=== PATIENT | male | born 1950 | race Caucasian/White ===

== ENCOUNTER → 2024-05-23 | Outpatient (CLI) | payer MEDICARE, OTHER, SELFPAY ==
[2024-05-23 09:51] LABS: Collection Type, Urine Clean Catch; Squamous Epithelial Cell,Urine 0 /hpf (0-5)
[2024-05-23 10:17] LABS: Basophils % (Auto) 0 % (0-2.5); Eosinophils # (Auto) 0.1 Thou/mm3 (0.0-0.5); Eosinophils % (Auto) 1 % (0-10); Hematocrit 41.6 % (41.0-53.0); Hemoglobin 14.6 g/dL (13.5-16.0); Immature Granulocytes % (Auto) 0 % (0-0); Immature Granulocytes Auto 0.02 Thou/mm3 (0.00-0.00); Lymphocytes % (Auto) 64 % (10-50); Mean Corpuscular HGB Conc 35.1 g/dl (31.0-37.0); Mean Corpuscular Hemoglobin 32.3 pg (25.0-35.0); Mean Corpuscular Volume 92 fL (80-100); Monocytes # (Auto) 1.1 Thou/mm3 (0.0-0.8); Monocytes % (Auto) 11 % (0-12); Neutrophils # (Auto) 2.2 Thou/mm3 (1.8-7.7); Neutrophils % (Auto) 23 % (37-80); Nucleated Red Blood Cell % 0 /100 WBC (0); Platelet Count 96 Thou/mm3 (140-440); RDW Standard Deviation 42.8 fL (35.1-43.9); Red Blood Count 4.52 Miln/mm3 (4.50-5.90); White Blood Count 9.4 Thou/mm3 (3.8-10.6)
[2024-05-23 10:28] LABS: Glucose Estimated Average 103 mg/dL (80-131); Hemoglobin A1C 5.2 % Hgb (4.8-6.0)
[2024-05-23 10:31] LABS: Bilirubin,Urine Negative (Negative); Blood,Urine Negative (Negative); Clarity,Urine Clear (Clear/Hazy); Color,Urine Yellow (Lt Yel-Yel); Culture Indicated,Urine Not Indicated; Glucose, Urine Negative (Negative); Ketones,Urine Negative (Negative); Leukocyte Esterase,Urine Negative (Negative); Nitrite,Urine Negative (Negative); PH,Urine 5.5 (5.0-7.0); Protein,Urine Trace (Neg - Trace); RBC,Urine 1 /hpf (0-3); Specific Gravity,Urine 1.022 (1.001-1.035); Urobilinogen,Urine Negative mg/dL (0.0-1.0); WBC,Urine < 1 /hpf (0-5)
[2024-05-23 10:49] LABS: Alanine Aminotransferase 22 U/L (10-49); Albumin, Serum 4.4 gm/dL (3.4-4.8); Albumin/Globulin Ratio 1.9 (1.2-2.2); Anion Gap 5 (7-16); Aspartate Amino Transferase 27 U/L (0-34); BUN/Creatinine Ratio 17 Ratio (12-20); Bilirubin,Total 2.9 mg/dL (0.3-1.2); Blood Urea Nitrogen 20 mg/dL (9-23); Calcium 9.7 mg/dL (8.3-10.6); Calcium (Corrected) 9.7 mg/dL (8.5-10.1); Carbon Dioxide 28.6 mMol/L (20.0-31.0); Cardiac Risk Estimate 3.3 RATIO (4.0-6.7); Chloride 107 mMol/L (98-107); Cholesterol 103 mg/dL (132-200); Creatinine (Component) 1.2 mg/dL (0.6-1.3); Globulin 2.3 gm/dL (2.3-3.5); Glucose 101 mg/dL (74-106); HDL Cholesterol 31 mg/dL (40-60); LDL Cholesterol,Calculated 49 mg/dL (0-130); Osmolality,Calculated 283 (275-295); Potassium 4.8 mMol/L (3.4-5.1); Sodium 141 mMol/L (136-145); Thyroid Stimulating Hormone 3.44 uIU/mL (0.55-4.78); Total Protein 6.7 gm/dL (5.7-8.2); Triglycerides 113 mg/dL (30-150); eGFR > 60 See Note
[2024-05-23 13:44] LABS: Alkaline Phosphatase 92 U/L (46-116)
== END | disposition home or self-care (01) ==
PROVIDERS: PCP Family Medicine; Referring Provider Nurse Practitioner Family; Visit Provider Nurse Practitioner Family
DX: Z00.00 Encounter for general adult medical examination without abnormal findings (principal)
CPT/HCPCS: 36415; 80053; 80061; 81001; 83036; 84153; 84443; 85025

== ENCOUNTER → 2024-06-08 | Outpatient (CLI) | payer MEDICARE, OTHER, SELFPAY ==
[2024-06-08 15:57] LABS: Basophils % (Auto) 0 % (0-2.5); Eosinophils # (Auto) 0.1 Thou/mm3 (0.0-0.5); Eosinophils % (Auto) 1 % (0-10); Hematocrit 41.9 % (41.0-53.0); Hemoglobin 14.5 g/dL (13.5-16.0); Immature Granulocytes % (Auto) 0 % (0-0); Immature Granulocytes Auto 0.04 Thou/mm3 (0.00-0.00); Lymphocytes # (Auto) 6.8 Thou/mm3 (1.0-4.8); Lymphocytes % (Auto) 68 % (10-50); Mean Corpuscular HGB Conc 34.6 g/dl (31.0-37.0); Mean Corpuscular Hemoglobin 32.6 pg (25.0-35.0); Mean Corpuscular Volume 94 fL (80-100); Monocytes # (Auto) 0.7 Thou/mm3 (0.0-0.8); Monocytes % (Auto) 7 % (0-12); Neutrophils # (Auto) 2.4 Thou/mm3 (1.8-7.7); Neutrophils % (Auto) 24 % (37-80); Nucleated Red Blood Cell % 0 /100 WBC (0); Platelet Count 101 Thou/mm3 (140-440); RDW Standard Deviation 44.1 fL (35.1-43.9); Red Blood Count 4.45 Miln/mm3 (4.50-5.90)
[2024-06-08 16:05] LABS: Alanine Aminotransferase 31 U/L (10-49); Albumin, Serum 4.5 gm/dL (3.4-4.8); Albumin/Globulin Ratio 1.8 (1.2-2.2); Alkaline Phosphatase 113 U/L (46-116); Anion Gap 6 (7-16); Aspartate Amino Transferase 35 U/L (0-34); BUN/Creatinine Ratio 18 Ratio (12-20); Bilirubin,Total 2.2 mg/dL (0.3-1.2); Blood Urea Nitrogen 20 mg/dL (9-23); Calcium 10.2 mg/dL (8.3-10.6); Calcium (Corrected) 10.2 mg/dL (8.5-10.1); Carbon Dioxide 28.1 mMol/L (20.0-31.0); Chloride 109 mMol/L (98-107); Creatinine (Component) 1.1 mg/dL (0.6-1.3); Globulin 2.5 gm/dL (2.3-3.5); Glucose 88 mg/dL (74-106); Osmolality,Calculated 286 (275-295); Potassium 5.3 mMol/L (3.4-5.1); Sodium 143 mMol/L (136-145); eGFR > 60 See Note
[2024-06-11 23:36] LABS: HCV RNA, PCR <15 NOT DETECTED IU/mL
[2024-06-12 07:19] LABS: HCV RNA, PCR Log IU <1.18 NOT DETECTED Log IU/mL
== END | disposition home or self-care (01) ==
LOC: COPL 14:29
PROVIDERS: PCP Family Medicine; Referring Provider Specialist; Visit Provider Specialist
DX: R16.0 Hepatomegaly, not elsewhere classified (principal); R14.0 Abdominal distension (gaseous); R10.31 Right lower quadrant pain; R10.32 Left lower quadrant pain
CPT/HCPCS: 36415; 80053; 82105; 85025; 87522

== ENCOUNTER → 2024-06-13 | Outpatient (CLI) | payer MEDICARE, OTHER, SELFPAY ==
--- NOTE | 2024-06-13 13:00 | XR_ITS ---
Examination: Abdomen sonogram, Limited Date and time of exam: June 13, 2024 1309 hours INDICATIONS: Abdominal distention beginning this week Technique: Real-time alejandro scale transabdominal sonographic images of the upper abdomen obtained. Findings: Negative for gallstones Gallbladder wall is abnormally thickened 0.68 cm Common bile duct 0.3 cm Pancreatic head 3.3 cm Liver 16.9 cm lobular contour fatty infiltration Normal hepatopedal portal venous flow Patent IVC IMPRESSION: Consider HIDA scan or MRCP follow-up to exclude cholecystitis
== END | disposition home or self-care (01) ==
PROVIDERS: PCP Specialist; Referring Provider Specialist; Visit Provider Specialist
DX: R14.0 Abdominal distension (gaseous) (principal); R10.32 Left lower quadrant pain; R10.31 Right lower quadrant pain
CPT/HCPCS: 76705

== ENCOUNTER 2024-12-01 16:49 | Emergency (ER) | payer MEDICARE, OTHER, SELFPAY ==
--- NOTE | 2024-12-01 16:57 | EDNOTE_ITS ---
ED Wound/Laceration-RME/HPI General Chief Complaint: Wound/Laceration Stated Complaint: CUT LEFT INEX FINGER ON TABLE SAW Time Seen by Provider: 12/01/24 16:57 Source: patient Arrival date/time: 12/01/24 16:49 74-year-old male with a history of cirrhosis, hepatitis C presents to the [facility] ency room with a chief complaint of a laceration to his left index finger Mode of arrival: ambulatory Limitations: no limitations Related Data Home Medications ?Medication ?Instructions ?Recorded ?Confirmed apixaban 5 mg tablet (Eliquis) 5 mg PO BID 01/14/24 hydroxyzine HCl 10 mg tablet 10 mg PO QID 01/14/24 metoprolol succinate 50 mg 50 mg PO TID 01/14/2401/13 tablet,extended release 24 hr Previous Rx's ?Medication ?Instructions ?Recorded atorvastatin 20 mg tablet 40 mg (2 x 20 mg) PO HS #2 t abs 08/10/17 nitroglycerin 0.4 mg sublingual 0.4 mg SL Q5M PRN Ches t Pain #3 08/10/17 tablet (Nitrostat) tabs sulfamethoxazole 800 1 tab PO BID 5 days #10 tabs 12/01/24 mg-trimethoprim 160 mg tablet (Bactrim DS) Allergies Allergy/AdvReac Type Severity Reaction Status Date / Time adhesive tape Allergy Mild skin Verified 12/01/24 16:51 irritation cefuroxime Allergy Mild DIARRHEA Verified 12/01/24 16:51 iodine Allergy Mild itching Verified 12/01/24 16:51 Review of Systems Review of Systems Systems Reviewed: All systems reviewed, normal except as documented Constitutional Constitutional: Reports system reviewed and no additional complaints, except as documented, Denies fatigue, Denies fever(s), Denies headache(s) and Denies weakness Eyes Eyes: Reports system reviewed and no additional complaints, except as documented, Denies blurry vision and Denies change in vision ENT Ears, Nose, Mouth, and Throat: Reports system reviewed and no additional complaints, except as documented, Denies otalgia, Denies headache(s), Denies nasal congestion, Denies throat swelling and Denies vertigo Cardiovascular Cardiovascular: Reports system reviewed and no additional complaints, except as documented, Denies chest pain, Denies dyspnea and Denies dyspnea on exertion Respiratory Respiratory: Reports system reviewed and no additional complaints, except as documented, Denies chest congestion, Denies cough, Denies dyspnea, Denies dyspnea on exertion and Denies wheezing Gastrointestinal Gastrointestinal: Reports system reviewed and no additional complaints, except as documented, Denies abdominal pain, Denies cramping, Denies nausea and Denies vomiting Genitourinary Genitourinary: Reports system reviewed and no additional complaints, except as documented, Denies dysuria and Denies hematuria Musculoskeletal Musculoskeletal: Reports system reviewed and no additional complaints, except as documented and Denies back pain Integumentary/Breasts Skin/Breast: Reports system reviewed and no additional complaints, except as documented and Reports wounds Neurologic Neurologic: Reports system reviewed and no additional complaints, except as documented, Denies confusion, Denies headache(s), Denies lack of coordination, Denies vertigo and Denies weakness Psychiatric Psychiatric: Reports system reviewed and no additional complaints, except as documented, Denies anxiety, Denies confusion, Denies depression, Denies paranoia, Denies suicidal ideation and Denies tactile hallucinations Endocrine Endocrine: Reports system reviewed and no additional complaints, except as documented and Denies fatigue Hematologic/Lymphatic Hematologic/Lymphatic: Reports system reviewed and no additional complaints, except as documented and Denies lymphadenopathy Allergic/Immunologic Allergic/Immunologic: Reports system reviewed and no additional complaints, except as documented, Denies throat swelling, Denies urticaria and Denies wheezing Past Medical History Past Medical History NEUROLOGIC: Positive Peripheral Neuropathy (per/pt due to herniated disks); Negative Seizures CARDIAC: Positive Cardiac Disorders, Cardiac Arrhythmia, Atrial Fibrillation, Hypercholesterolemia and Hypertension; Negative Congestive Heart Failure RESPIRATORY: Negative Chronic Obstructive Pulmonary Disease (COPD) GASTROINTESTINAL: Positive Cirrhosis and Hiatal Hernia (umbilical hernia) GENITOURINARY: Positive Benign Prostatic Hyperplasia (Pending biopsy of prostate per/pt.); Negative Renal Disease REPRODUCTIVE: Positive Gonorrhea ENDOCRINE: Negative Diabetes Mellitus Type 1 or Diabetes Mellitus Type 2 PSYCHO/SOCIAL: Positive Anxiety OTHER HISTORY: Positive 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; side effect of interferon therapy.), Blood Transfusions, Anesthesia Reactions (to ether-hard to wake up) and Cancer (melanoma); Negative Blood Transfusion Reaction Family History FAMILY HISTORY: Positive Family Cardiac Disorders (Father: [place] (age 40's) & heart Ds; Mother Heart Ds in 80's) Surgical History SURGICAL: Positive Arthroscopy (Bilateral knees) Social History SMOKING STATUS: Never smoker SECOND HAND EXPOSURE: No ED Exam General Limitations: Present no limitations General appearance: Present alert and in no apparent distress Head Head exam: Present atraumatic Eye Eye exam: Present normal appearance, PERRL and EOMI ENT ENT exam: Present normal exam, normal oropharynx and mucous membranes moist Neck Neck exam: Present normal inspection, full ROM and trachea midline Chest Chest inspection: Present normal inspection and symmetric chest wall rise Respiratory Respiratory exam: Present normal lung sounds bilaterally Cardiovascular Cardiovascular exam: Present regular rate, normal rhythm and normal heart sounds Abdominal Exam Abdominal exam: Present soft and normal bowel sounds Extremities Exam Extremities exam: Present normal inspection and full ROM Back Exam Back exam: Present normal inspection and full ROM Neurological Exam Neurological exam: Present alert, oriented X3 and CN II-XII intact Psychiatric Psychiatric exam: Present normal affect and normal mood Skin Skin exam: Present warm, dry, intact and normal color Course Quality Measures none Orders Category Date Time Status Set Up Suture Tray STAT Care 12/01/24 16:57 Completed Wound Care NOW Care 12/01/24 16:57 Completed Lidocaine 1% 20 ml [Xylocaine 1% 20 ML] Med 12/01/24 16:57 Discontinued 20 ml INFL X1 ONE TET,DIP/PERT AC (Adult)-Tdap [Boostrix Adult (Tdap) Med 12/01/24 16:57 Discontinued Vacc] 0.5 ml IMI .ONCE ONE Vital Signs Vital signs: Vital Signs Temperature 98.0 F 12/01/24 17:00 Pulse Rate 93 12/01/24 17:00 Respiratory Rate 20 12/01/24 17:00 Blood Pressure 144/91 H 12/01/24 17:00 Pulse Oximetry (%) 97 12/01/24 17:00 Oxygen Delivery Method Room Air 12/01/24 17:00 O2 saturation 97% within normal limits PROCEDURES: Laceration Laceration 1: Site: hand Side (If applicable): left Size (cm): 2 Description: linear, flap and irregular Depth: simple, single layer Local Anesthetic: lidocaine 1% Amount of anesthesia used (mL): 5 Pre-repair: irrigated extensively Skin layer closed with: nylon Suture size (cm): 4-0 Number of sutures: 4 Technique: simple, interrupted Wound / Laceration MDM Narrative MDM Narrative:: 74-year-old male with a history of cirrhosis, hepatitis C presents to the emergency room with a chief complaint of a laceration to his left index finger The laceration occured 1 hour ago The mechanism of injury was using a saw Sensation is intact. There is full ROM. There is no exposed tendons. No foreign bodies. Lidocaine 1% was used for anesthesia. The wound was irrigated extensively with normal saline. 4 sutures were placed. A dressing was placed. There were no complications. Patient was educated to keep the area clean and dry for 24 hours, then clean daily with soap and water. Patient was educated to return for any signs of infection including swelling pain redness pus or fever and to make an appo intment with primary care provider in 48 hours. Patient was educated to follow up with primary or return to emergency room for suture removal in the next 7-10 days. Patient data External records reviewed:: [facility] previous records Clinical information provided by:: patient Social determinants that could affect healthcare access:: none Patient has the following chronic illnesses:: No chronic illness How is presenting disease/condition affected by chronic disease/condition?: no chronic disease Evaluation data The following diagnostics were reviewed and interpreted by me:: lab results and radiology exam(s) Lab and/or radiology exams considered but not ordered:: Labs and radiology exams considered and ordered Interpretation Summary: N/A Medications / Prescriptions Medications or Prescriptions considered but not ordered:: Medication given Medication administrations:: Medication Administration History Discontinued Medications Diphtheria/Tetanus/Acell Pertussis (Diphth,Pertuss(Acell),Tet Vac 0.5 Ml Syr- Adult) 0.5 ml IMi .ONCE ONE Stop: 12/01/24 16:58 Last Admin: 12/01/24 17:41 Dose: Not Given Documented By: Non-Admin Reason: Patient Refused Lidocaine HCl (Lidocaine Hcl 1% 20 Ml Vial) 20 ml INFL X1 ONE Stop: 12/01/24 16:58 Last Admin: 12/01/24 17:41 Dose: 20 ml Documented By: Medication given Consultations Consultation(s) initiated? (list below): No Diagnosis Wound Differential Diagnosis: laceration, abscess, abrasion and avulsion of skin Most likely diagnosis given after review of the tests above:: Laceration Admission Indicated Admission indicated?: not indicated Admission Request Was there a request for admission?: No Disposition Plan Disposition Plan: Discharge Discharge Attestation Discharge Attestation: The patient and all family members were given an opportunity to ask questions and understood the discharge instructions. Discharge instructions specifically effects, indications for sooner follow up or return to the emergency department, and the expected course of current diagnosis. Patient condition: Stable Discharge Plan Plan Patient Disposition: HOME (Self Care) Discharge Disposition comment: Stable Prescriptions/Referrals Prescriptions/Med Rec: New sulfamethoxazole-trimethoprim [Bactrim DS] 800-160 mg tablet 1 tab PO BID 5 Days Qty: 10 0RF No Action atorvastatin 20 mg Tablet 40 mg PO HS Qty: 2 0RF nitroglycerin [Nitrostat] 0.4 mg Tablet, Sublingual 0.4 mg SL Q5M PRN (Reason: Chest Pain) Qty: 3 0RF metoprolol succinate 50 mg Tablet Extended Release 24 Hr 50 mg PO TID hydroxyzine HCl 10 mg Tablet 10 mg PO QID Eliquis 5 mg Tablet 5 mg PO BID Problem List Clinical Impression: Laceration Patient/Caregiver Discharge Instructions Additional Instructions: Please follow-up with your primary care provider in the next 24 to 48 hours Antibiotics are sent to your pharmacy please pick them up and take them as indicated Please keep the area clean and dry for the next 24 hours after you clean it with soap and water You can return to the emergency room or follow-up with your regular doctor in 7 to 10 days for suture removal For any evidence of worsening signs or symptoms return to the emergency room immediately Print Language: Pashto Stand Alone Forms: Dariela Award Info., Patient Portal Info Letter PA/EVELIO Supervising Physician RADHA/EVELIO Supervising Physician: Dr. Tabares
[2024-12-01 17:00] VITALS: BP 144/91; PULSE 93; RESP 20; TEMP 36.7; O2SAT 97
[2024-12-01] MEDS: LIDOCAINE HCL 1% 20 ML VIAL INFL (17:41)
== END 2024-12-01 18:45 | disposition home or self-care (01) ==
PROVIDERS: Emergency Provider Family Medicine
DX: S61.211A Laceration without foreign body of left index finger without damage to nail, initial encounter (principal); Z28.21 Immunization not carried out because of patient refusal; W31.2XXA Contact with powered woodworking and forming machines, initial encounter; Z88.1 Allergy status to other antibiotic agents; Z91.041 Radiographic dye allergy status; Z91.048 Other nonmedicinal substance allergy status
CPT/HCPCS: 12001; 99284; J3490

== ENCOUNTER → 2025-01-23 | Outpatient (CLI) | payer MEDICARE, OTHER, SELFPAY ==
[2025-01-23 13:36] LABS: Anion Gap 7 (7-16); BUN/Creatinine Ratio 11 Ratio (12-20); Blood Urea Nitrogen 13 mg/dL (9-23); Calcium 9.1 mg/dL (8.3-10.6); Carbon Dioxide 27.7 mMol/L (20.0-31.0); Chloride 108 mMol/L (98-107); Creatinine (Component) 1.2 mg/dL (0.6-1.3); Glucose 113 mg/dL (74-106); Magnesium 1.8 mg/dL (1.6-2.6); Osmolality,Calculated 286 (275-295); Potassium 4.8 mMol/L (3.4-5.1); Sodium 143 mMol/L (136-145); eGFR > 60 See Note
== END | disposition home or self-care (01) ==
LOC: COPL 12:37
PROVIDERS: PCP Family Medicine; Referring Provider Internal Medicine Cardiovascular Disease; Visit Provider Internal Medicine Cardiovascular Disease
DX: I10 Essential (primary) hypertension (principal)
CPT/HCPCS: 36415; 80048; 83735